=== PATIENT | female | born 1995 | race Caucasian/White ===

== ENCOUNTER 2020-07-31 22:39 | Emergency (ER) | payer BC ==
[~2020-07-31] VITALS: Ht 160 cm; Wt 54.4 kg
--- NOTE | ~2020-07-31 | EMS ---
[address] [address] EMS Patient Care Report Name: GILBERTO MARMOLEJO Room #: REG DORYS Carranza#: [id number] Admission: 07/31/20 Attend Phys: Discharge: Date of : [birth year] Report #: [id number] THIS REPORT FOR: //name// Report Transmitted: 07/31/2020 23:20 EMS Care Summary [place], [place]/[facility] Incident [phone] @ 07/31/2020 22:15 Incident Location [address] [place] [id number] Patient GILBERTO MARMOLEJO Female, 25 Years 1995 Patient Address Patient History Migraine,Atrial Fibrillation, Patient Allergies No known allergies, Patient Medications Propranolol, Effexor, Chief Complaint MIGRAINE Disposition Transported No Lights/[place] Dispatch Reason Chest Pain (Non-Traumatic) Transported To [facility] Narrative RESPONDED TO CHEST PAIN AT LOBBY OF APARTMENTS. PT FOUND ALERT AND ORIENTED BUT CRYING. PT REPORTS HAVING MIGRAINE PAINS AND FEELING NAUSEATED WITH DIZZINESS WHEN WALKING. PT ASSISTED TO COT. PT VITALS AND 3 LEAD OBTAINED. PT DENIES SOA OR CHEST PAIN. PT REPORTS NOT TAKING PROPANOLOL FOR 3 WEEKS FOR ATRIAL FIBRILLATION. PT TRANSPORTED TO [facility] WITH NO CHANGES. PT WALKED FROM COT TO BED AND HANDRAILS UP. REPORT GIVEN TO NURSE. [address] [address] EMS Patient Care Report Name: GILBERTO MARMOLEJO Room #: REG [facility]#: [id number] Admission: 07/31/20 Attend Phys: Discharge: Date of : [birth year] Report #: [id number] Initial Vitals @22:26P: 89,CO: 1,SpO2: 99, @22:31P: 108,R: 18,BP: 121/71,CO: 1,SpO2: 96, @22:25P: 90,R: 20,BP: 126/81,Pain: 10/10,GCS: 15,SpO2: 100,Revised Trauma: 12, Assessments @22:22MENTAL:Time Oriented,Person Oriented,Place Oriented,Event Oriented,SKIN:HEENT:Head/Face: No Abnormalities,Eyes: No Abnormalities,Neck/Airway: No Abnormalities,LUNG SOUNDS:General: Nausea,Left Upper: No Abnormalities,Right Upper: No Abnormalities,Left Lower: No Abnormalities,Right Lower: No Abnormalities,ABDOMEN:General: Nausea,Left Upper: No Abnormalities,Right Upper: No Abnormalities,Left Lower: No Abnormalities,Right Lower: No Abnormalities,PELVIS//GI:No Abnormalities,EXTREMITIES:Left Arm: No Abnormalities,Right Arm: No Abnormalities,Left Leg: No Abnormalities,Right Leg: No Abnormalities,PULSE:NEURO:No Abnormalities,@22:30MENTAL:Time Oriented,Person Oriented,Event Oriented,Place Oriented,SKIN:HEENT:Head/Face: No Abnormalities,Eyes: No Abnormalities,Neck/Airway: No Abnormalities,LUNG SOUNDS:General: Nausea,Left Upper: No Abnormalities,Right Upper: No Abnormalities,Left Lower: No Abnormalities,Right Lower: No Abnormalities,ABDOMEN:General: Nausea,Left Upper: No Abnormalities,Right Upper: No Abnormalities,Left Lower: No Abnormalities,Right Lower: No Abnormalities,PELVIS//GI:No Abnormalities,EXTREMITIES:Left Arm: No Abnormalities,Right Arm: No Abnormalities,Left Leg: No Abnormalities,Right Leg: No Abnormalities,PULSE:NEURO:No Abnormalities, Impression Migraine Procedures @22:22ALS AssessmentResponse: UnchangedSucceeded@22:263-Lead ECGResponse: UnchangedSucceeded Timeline 22:13,Call Received 22:13,Dispatch Notified 22:15,Dispatched 22:15,En Route 22:20,On Scene 22:22,At Patient 22:22,ALS Assessment,Response: UnchangedSucceeded, 22:25,BP: 126/81 M,PULSE: 90,RR: 20 R,SPO2: 100 Ox,ETCO2: ,BG: ,PAIN: 10,GCS: 15, 22:26,3-Lead ECG,Response: UnchangedSucceeded, 22:26,BP: / M,PULSE: 89,RR: R,SPO2: 99 Ox,ETCO2: ,BG: ,PAIN: ,GCS: , [facility] [address] [place] [address] EMS Patient Care Report Name: GILBERTO MARMOLEJO Room #: REG [facility]#: [id number] Admission: 07/31/20 Attend Phys: Discharge: Date of : [birth year] Report #: [id number] 22:28,Depart Scene 22:31,BP: 121/71 M,PULSE: 108,RR: 18 R,SPO2: 96 Ox,ETCO2: ,BG: ,PAIN: ,GCS: , 22:36,At Destination 22:50,Call Closed Disclaimer v1.1 Copyright 2020 [employer] This EMS Care Summary contains data elements from the applicable legal record (which may be displayed differently). It is designed to provide pertinent information for the following purposes: continuity of care, clinical quality, and state data reporting. The complete legal record is available to ED staff and administrators of the receiving hospital in [employer] Patient Tracker. All data is provided "as is."
[2020-07-31 23:38] LABS: ABSOLUTE NEUTROPHILS 5.2 thou/uL (1.4-8.2); BASOPHILS 0.8 % (0.0-2.0); HEMATOCRIT 40.8 % (37.0-47.0); HEMOGLOBIN 13.4 gm/dL (12.0-15.0); LYMPHOCYTES 25.1 % (24.0-44.0); MCH 28.4 pg (26.0-34.0); MCHC 32.8 g/dL (28.0-37.0); MCV 86.6 fL (80.0-100.0); MONOCYTES 6.5 % (1.0-8.0); PLATELET COUNT 300 thou/uL (150-400); POLYS 66.6 % (36.0-66.0); RBC 4.71 mil/uL (4.20-5.00); RDW 12.8 % (10.5-14.5); WBC 7.8 thou/uL (4.0-11.0)
[2020-07-31 23:39] LABS: CALCIUM 9.2 mg/dL (8.5-10.1); CREATININE 0.7 mg/dL (0.6-1.0); POTASSIUM 3.5 mmol/L (3.5-5.1)
[2020-07-31 23:45] LABS: ALBUMIN 4.2 g/dL (3.4-5.0); TOTAL BILIRUBIN 0.2 mg/dL (0.2-1.0); TOTAL PROTEIN 7.9 g/dL (6.4-8.2)
[2020-07-31] MEDS ORDERED: BUTALB-APAP-CA1 EACH PO (23:51)
[2020-07-31] MEDS ORDERED: VENLAFAXINE HCL75 M2 PO (23:57)
[2020-07-31] MEDS ORDERED: PROPRANOLOL 1010 M1 PO (23:58)
[2020-08-01 00:23] VITALS: BP 102/53
--- NOTE | 2020-08-01 15:24 | EKG ---
[address] [address] ELECTROCARDIOGRAM REPORT Name: GILBERTO MARMOLEJO Room #: DEP [facility]#: [id number] Admission: 07/31/20 Attend Phys: Discharge: 08/01/20 Date of : [birth year] Report #: [id number] [facility] ED Test Date: 2020-07-31 Test Time: 22:45:39 Pat Name: GILBERTO MARMOLEJO Department: Room: Gender: F Professor Of Art: zeeshan : 1995 Requested By: Gus Alberts Order Number: [id number] MD: Jose He Measurements Intervals [place] Rate: 93 P: 53 AR: 154 QRS: 16 QRSD: 88 T: 53 QT: 334 QTc: 416 Interpretive Statements Sinus rhythm No previous ECG available for comparison Electronically Signed On 08-01-2020 15:24:13 CDT by Jose He [email or web address] <ELECTRONICALLY SIGNED> By: Jose He MD 08/01/20 1524 [id number] Jose He MD /EPI
== END 2020-08-01 00:25 | disposition home or self-care (01) ==
LOC: ER 22:39
PROVIDERS: Emergency Medicine
DX: R51.9 Headache, unspecified (principal); R11.0 Nausea; H53.8 Other visual disturbances; I48.91 Unspecified atrial fibrillation